=== PATIENT | female | born 1970 | race Caucasian/White ===

== ENCOUNTER → 2022-02-14 | Outpatient (CLI) | payer BC ==
[~2022-02-14] MED LIST: GADOTERATE MEGLUMINE 10 MMOL/20 ML VIAL IV ONE
== END | disposition home or self-care (01) ==
LOC: RAH 08:11
PROVIDERS: ATTEND Family Medicine Sports Medicine
DX: R55 Syncope and collapse (principal)
CPT/HCPCS: 70553; A9575

== ENCOUNTER → 2022-05-24 | Outpatient (CLI) | payer BC | END | disposition home or self-care (01) | LOC: RAH 13:13 | PROVIDERS: ATTEND Physical Medicine & Rehabilitation | DX: M48.02 Spinal stenosis, cervical region (principal); M48.062 Spinal stenosis, lumbar region with neurogenic claudication | CPT/HCPCS: 72141; 72148 ==

== ENCOUNTER → 2023-04-29 | Outpatient (CLI) | payer BC | END | disposition home or self-care (01) | LOC: RAH 13:06 | PROVIDERS: ATTEND Physical Medicine & Rehabilitation | DX: D86.89 Sarcoidosis of other sites (principal) | CPT/HCPCS: 72156; 72157; A9575 ==

== ENCOUNTER → 2023-07-25 | Outpatient (CLI) | payer BC | END | disposition home or self-care (01) | LOC: RAH 13:40 | PROVIDERS: ATTEND Physical Medicine & Rehabilitation | DX: M48.061 Spinal stenosis, lumbar region without neurogenic claudication (principal); M47.816 Spondylosis without myelopathy or radiculopathy, lumbar region | CPT/HCPCS: 72114; 72131 ==